=== PATIENT | male | born 1990 | race Two or more races ===

== ENCOUNTER → 2019-07-12 | Emergency (ER) | payer SELFPAY ==
[~2019-07-12] MED LIST: MORPHINE SULF INJ 2 MG/ML SYRINGE 1ML IV ONE; MORPHINE SULF INJ 2 MG/ML SYRINGE 1ML ONE; ONDANSETRON HCL 4 MG/2 ML VIAL IV ONE; ONDANSETRON HCL 4 MG/2 ML VIAL ONE; PROMETHAZINE HCL 25 MG/ML 1ML IV ONE; PROMETHAZINE HCL 25 MG/ML 1ML ONE; cefTRIAXone 1GM/50ML D5W 50 ML IV ONE; cefTRIAXone SOD 1,000 MG VL ONE; metroNIDAZOLE 500MG/100ML 100 ML IV ONE
[2019-07-12] MEDS: MORPHINE SULF INJ 2 MG/ML SYRINGE 1ML IV PRN ×5 (16:30→17:28)
[2019-07-12 16:39] LABS: Basophils # (auto) 0.2 10 ^3/uL (0-0.2); Basophils % (auto) 1.2 % (0.0-2.0); Eosinophils # (auto) 0.5 10 ^3/uL (0-0.8); Lymphocytes # (auto) 5.1 10 ^3/uL (0.4-5.4); Lymphocytes % (auto) 38.8 % (10.0-50.0); Monocytes # (auto) 0.9 10 ^3/uL (0-1.3); Neutrophils # (auto) 6.5 10 ^3/uL (1.6-8.6); Nucleated Red Blood Cells % 0.1 %; White Blood Cell 13.2 10^3/uL (4.4-10.8)
[2019-07-12 16:40] LABS: Hematocrit 47.9 % (41.0-53.0); Hemoglobin 16.1 g/dL (13.5-17.5); Mean Corpuscular Hgb Conc. 33.5 g/dL (32.0-36.0); Mean Corpuscular Volume 89.4 fL (80.0-100.0); Platelet Count (auto) 366 10^3/uL (140-450); Red Blood Cells 5.36 10^6/uL (4.5-5.90)
[2019-07-12 16:48] LABS: INR 0.98 (0.9-1.15); Partial Thromboplastin Time 22.7 sec (23.64-32.05)
[2019-07-12 16:55] LABS: Albumin 3.8 g/dL (3.4-5.0); Calcium 9.5 mg/dL (8.5-10.1); Potassium 4.5 mmol/L (3.5-5.1)
[2019-07-12 16:58] LABS: BUN/Creatinine Ratio 9.6; Bilirubin, Total 0.3 mg/dL (0.2-1.0); Total Protein 7.9 g/dL (6.4-8.2)
[2019-07-12 17:20] VITALS: BP 144/71
== END | disposition short-term general hospital (02) ==
LOC: ER 16:12
DX: S31.134A Puncture wound of abdominal wall without foreign body, left lower quadrant without penetration into peritoneal cavity, initial encounter (principal); W34.00XA Accidental discharge from unspecified firearms or gun, initial encounter; Y93.9 Activity, unspecified; Y99.9 Unspecified external cause status; Y92.9 Unspecified place or not applicable
CPT/HCPCS: 36415; 36430; 80053; 85025; 85610; 85730; 86850; 86900; 86901; 86920; 96374; 96375; 96376; 99285; J0696; J2270; J2405; J2550; J3490; P9016